=== PATIENT | male | born 1995 | race Asian ===

== ENCOUNTER 2017-03-10 08:32 | Emergency (ER) | payer SELFPAY ==
[2017-03-10 08:38] VITALS: RESP 16
--- NOTE | 2017-03-10 08:58 | EDPHY ---
H & P Time Seen by Provider: 03/10/17 08:39 HPI/ROS: CHIEF COMPLAINT: Rash x 24 hr HISTORY OF PRESENT ILLNESS: 21-year-old immunocompetent male been experiencing URI symptoms for the past 3 days, taking a nonprescription cold flu medication from [place], awoke with diffuse nontender nonpruritic rash this morning. No intraoral lesions. No ocular irritation. No genitalia lesions. No gastroenteritis or GI symptoms. No fever or chills. No flu-like symptoms. No myalgias. No headache. No nuchal rigidity. No sore throat. Patient has been at [facility] [place] [employer] for 3 years, states that he is up-to-date with all required vaccinations at [facility] [place]. [facility] REVIEW OF SYSTEMS: A ten point review of systems was performed and is negative with the exception of the items mentioned in the HPI PAST MEDICAL & SURGICAL HISTORY: up-to-date with immunizations SOCIAL HISTORY: Nonsmoker, [facility] [place] student PHYSICAL EXAM (Prior to examination, patient consented to physical exam, hands were washed and my usual and customary physical exam procedures followed) 1) GENERAL: Well-developed, well-nourished, alert and oriented. Appears to be in no acute distress. Appears nontoxic. Answering questions appropriately. Smiling. 2) HEAD: Normocephalic, atraumatic 3) HEENT: Pupils equal, round, reactive to light bilaterally. No injection of sclera.. Nasopharynx, oropharynx, clear, no lesions. No K[place] spots. Ears bilaterally with normal tympanic membranes. No signs of otitis media otitis externa. 4) NECK: Full range of motion, no meningeal signs. No adenopathy. 5) LUNGS: Clear auscultation bilaterally, no wheezes, no rhonchi, no retractions. 6) HEART: Regular rate and rhythm, no murmur, no heave, no gallop. 7) ABDOMEN: No guarding, no rebound, no focal tenderness, negative McBurney's, negative Oliveros's, negative Rovsing's, negative peritoneal sign, 8) MUSCULOSKELETAL: Moving all extremities, no focal areas of tenderness, no obvious trauma. No peripheral edema or discoloration. 9) BACK: No CVA tenderness, no midline vertebral tenderness, no fluctuance, no step-off, no obvious trauma, no visual or palpable abnormality. 10) SKIN: Diffuse papular rash, does not followed dermatomal distribution, no pattern on the trunk to suggest pityriasis rosea. Lesions are not coalesced. No weeping. No excoriation. No tenderness. No lesions on the palmar or plantar surfaces. 11) : No genitalia lesions.. DIFFERENTIAL DIAGNOSIS: In no particular include but limited to varicella, pityriasis rosea, [id number] disease, Jean Baptiste-Navin, measles Smoking Status: Never smoked Constitutional: Initial Vital Signs Temperature (C) 37.1 C 03/10/17 08:35 Heart Rate 127 H 03/10/17 08:35 Respiratory Rate 16 03/10/17 08:35 Blood Pressure 108/56 L 03/10/17 08:35 O2 Sat (%) 94 03/10/17 08:35 O2 Delivery Mode Room Air Allergies/Adverse Reactions: No Known Allergies Allergy (Unverified 03/10/17 08:35) MDM/Departure - MDM ED Course/Re-evaluation: Patient was re-evaluated with serial examinations. At 9:02 a.m. his heart rate is 108 beats per minute, is febrile 38.5. He is given Tylenol and Motrin. I think that his acute tachycardia is more than likely secondary to fever. His international advisor is here with him. She confirms that he has been in the [place] for 3 years and because he is [employer] Student he is up to date with his vaccinations per [facility] [place] recommendations. I think that the symptoms are more than likely secondary to acute viral etiology. Doubt varicella, doubt measles, doubt pityriasis rosea, doubt Jean Baptiste-Navin, doubt [id number] disease. He has no intraoral lesions. He is able to tolerate oral intake. I do not think that hospitalization, IV hydration currently indicated. We discussed supportive therapy. Has been informed that this may be an evolving process and that his rash may worsen or may be an early presentation of other illness and the importance of returning to the emergency department immediately she develop new or worsening symptoms, should she develop headache, altered mental status, intraoral lesions, should he develop decreased oral intake or decreased urinary output. Discussed contagion precautions. Given a note for school. The patient and his advisor feel comfortable with this plan. Care of patient under supervision of secondary supervising physician Dr Cooley with whom I discussed care. . - Depart Disposition: Home, Routine, Self-Care Clinical Impression: Rash Condition: Good Instructions: Acute Rash (ED) Additional Instructions: Adult Pain & Fever Control: We recommend Acetaminophen (Tylenol) and Ibuprofen (Motrin,Advil) for pain and fever control. When fever is high or pain severe, both drugs can be used at the same time, but at different intervals. Please note the time differences. Your dose is: Acetaminophen 650mg every 4 to 6 hours Ibuprofen 600mg every 6 hours with food OR Note: do not take Acetaminophen with Hydrocodone (Vicodin, Lortab) or Oycodone (Percocet). These medications also contain Acetaminophen. No more than 3000mg of Acetaminophen should be taken in 24 hours (for an adult). Stand Alone Forms: School Excuse Referrals: [facility] [Clinic] - 2-3 days, call for appt. [facility] (ED,. [Edm Groups for Call Sched] - 1-2 days without fail
[2017-03-10] MEDS ORDERED: ACETAMINOPHEN 500 MG TAB PO ONE (09:01)
[2017-03-10] MEDS ORDERED: IBUPROFEN 200 MG TAB PO ONE (09:01)
[2017-03-10 09:08] VITALS: O2SAT 98
[2017-03-10 09:27] VITALS: BP 110/85; PULSE 105; TEMP 100.8
== END 2017-03-10 09:28 | disposition home or self-care (01) ==
DX: R21 Rash and other nonspecific skin eruption (principal)